=== PATIENT | female | born 1965 ===

== ENCOUNTER 2020-06-18 00:46 | Outpatient (CLI) | payer OTHER, BC, SELFPAY ==
[2020-06-18 18:31] LABS: SARS-CoV-2 RNA PCR Negative
== END 2020-06-18 00:47 | disposition home or self-care (01) ==
LOC: ANHCOVIDDT 00:46
PROVIDERS: Visit Provider Surgery Plastic and Reconstructive Surgery
DX: Z01.812 Encounter for preprocedural laboratory examination (principal); Z20.828 Contact with and (suspected) exposure to other viral communicable diseases
CPT/HCPCS: 87635; C9803; U0003

== ENCOUNTER 2020-06-21 00:01 | Day surgery (SDC) | payer OTHER, BC, SELFPAY ==
[2020-06-07 13:05] VITALS: BMI 39.3
[2020-06-21] VITALS (13 sets, daily range): BP systolic 100–118; BP diastolic 48–72; PULSE 76–108; RESP 12–16; TEMP 36.1–36.2; O2SAT 94–100
--- NOTE | 2020-06-21 06:44 | WPDHPUPDATE1 ---
History and Physical Update Update Date/Time: 06/21/20 06:44 History and Physical has been reviewed, including an updated exam of the patient. There are NO changes in the patient's condition. Risks, benefits, and alternatives have been discussed and questions answered. Patient agrees to proceed with procedure.
[2020-06-21 06:54] LABS: Urine Cotinine NEGATIVE
[2020-06-21] MEDS: LACTATED RINGERS 1,000 ML 30 ML IV CONT ×2 (07:25→11:40)
--- NOTE | 2020-06-21 07:26 | WPDANESEPPF ---
Anes - Initial Pre Proc Eval Procedure: Operation Date: 06/21/20 08:30 Proposed Procedures p Bilateral Reduction Mammoplasty - Yefri Fitzgerald MD Date/Time: 06/21/20 07:26 Surgeon: Yefri Fitzgerald MD Pre Op Diagnosis: Macromastia Patient Data Age: 54 Gender: F Height: 5 ft 8 in Weight: 119.5 kg Allergies Allergy/AdvReac Type Severity Reaction Status Date / Time No Known Allergies Allergy Verified 06/21/20 07:14 Home Medications Medication Instructions Recorded Confirmed Type duloxetine 60 mg capsule,delayed 60 mg PO DAILY 02/10/20 06/21/20 History release metolazone 2.5 mg tablet 2.5 mg PO DAILY 02/10/20 06/21/20 History progesterone micronized 200 mg 200 mg PO DAILY 02/10/20 06/21/20 History capsule spironolactone 25 1 tablet PO DAILY 02/10/20 06/21/20 History mg-hydrochlorothiazide 25 mg tablet hydrocodone 5 mg-acetaminophen 325 1 tablet PO Q6H PRN #15 tablet 06/06/20 06/21/20 Rx mg tablet ondansetron HCl 4 mg tablet 4 mg PO Q6H PRN #30 tablet 06/06/20 06/21/20 Rx bupropion HCl 150 mg PO QAM 06/07/20 06/21/20 History estradiol [Estradiol Transdermal 1 patch TRANSDERMAL WEEKLY 06/07/20 06/21/20 History Patch] Laboratory Tests 06/21/20 06:40 Cotinine Negative Patient hx anesthesia problems: none Family hx anesthesia problems: none PMFSH Past Medical History Medical History Anxiety Depression Hypertension Surgical History Surgical History History of 3 sections 87, 95, 97 History of foot surgery 09, 10, 11, 17 History of lumpectomy 97 History of tonsillectomy 90 Family History Family History Mother Breast cancer Melanoma Grandparent Melanoma Social History Social History Smoking packs per day: 1 Smoking cigarettes per day: 20.0 Years smoked: 24 Smoking pack-years: 24.00 Smoking status: Current every day smoker Tobacco type: e-cigarettes/vaping Smoking end date: 06/07/06 Alcohol intake: current Substance use: never Living arrangements: with family Spiritual care concerns: No Anes - Eval Final PreProcedure Day of Procedure 06/21/20 07:26 Patient weight: morbidly obese Heart: regular rate and rhythm Lungs: clear to auscultation Airway: Mallampati scale (has upper right tooth that has been repaired ) class III Neurological: alert and oriented Last oral intake: >/= 8 hours ASA classification: IV Emergent: no Anesthetic plan: proceed Anesthesia type and monitoring: general ETT (ETT or LMA) and standard monitoring Informed Consent: The patient's anesthetic plan and its attendant risks and benefits were discussed with the patient/family/POA. Questions were solicited and answers provided to the satisfaction of the patient/family/POA.
[2020-06-21] MEDS: ceFAZolin 3 GM/D5W 100 ML 100 ML IVPB (08:30)
--- NOTE | 2020-06-21 11:57 | PM.PROC ---
Procedure Note - Detailed Date of procedure: 06/21/20 Pre-op diagnosis: Macromastia Post-op diagnosis: same Procedure performed: Bilateral reduction mammaplasty Description of procedure: She is here today for bilateral breast reduction. Previously and again today the risks, benefits, alternatives were discussed in extensive detail. I wanted her to be very realistic about the risks involved as well as expectations. We discussed aftercare and what to monitor for. She understands we can never guarantee final breast size and there will always be asymmetry. I was very upfront and honest about the risks of sensation change and even nipple loss (). Made sure answered all of her questions to her satisfaction today and consent was obtained. She was marked in the preoperative holding area with their verification. The patient was taken to the operating room placed supine on the operating table. Anesthesia was provided by anesthesiology. She was prepped and draped in a standard sterile fashion. A surgical time-out was taken. Stab incisions were made and I tumessed with a tumescent solution. I marked out the nipple-areolar complex at 42 mm. I then de-epithelialized the pedicle. The pedicle was well left well more than 2 cm in thickness. I then removed the inferior portion of the breast as well as the central keel to get shape based on preoperative planning. At this point copiously irrigated with saline solution and verified a strict hemostasis. I reapproximated the pillars using a 2-0 PDS as well as along the IMF. I tailor tacked the breast into place with alicia. She was placed in a sitting position. I verified the nipple-areolar complex position based on preoperative markings, intraoperative measurements, and observation which were in full agreement. This nipple-areolar complex was marked at 42 mm in size. I then placed supine and de-epithelialized this. Nipple-areolar complex was inset with 3-0 Monocryl. I closed the vertical incision with 3-0 Monocryl in the IMF with 3-0 stratafix. Then everything was closed using a running subcuticular 4-0 Monocryl followed by Steri-Strips. A dressing was placed followed by surgical bra. Patient was awoke and taken to PACU without difficulty. All instrument sponge counts were correct at the end of the case. Anesthesia: GLMA Surgeon: Yefri Fitzgerald MD Estimated blood loss (mL): 50 Drains: No Packing: No Pathology: yes (Bilateral breast tissue) Complications: No immediate complications Condition: stable Disposition: PACU Findings: Inverted T Superior medial pedicle Tissue removed: Right 1647 grams Left 1515.3 grams
[2020-06-21] MEDS: ONDANSETRON INJ 4 MG/2 ML VIAL IV PUSH (12:12)
[2020-06-21] MEDS: fentaNYL CITRATE INJ (*CRX) 100 MCG/2 ML VIAL 25 MCG IV PUSH ×4 (12:28→12:38)
[2020-06-21] MEDS: SCOPOLAMINE 1.5 MG PATCH TRANSDERM (13:30)
[2020-06-21] MEDS: diphenhydrAMINE HCl INJ 50 MG/ML VIAL 6.25 MG IV PUSH (13:31)
== END 2020-06-21 15:05 | disposition home or self-care (01) ==
PROVIDERS: Visit Provider Surgery Plastic and Reconstructive Surgery
PROC: 0HBV0ZZ Excision of Bilateral Breast, Open Approach (ICD-10-PCS; CPT 19318; principal; 2020-06-21 08:30)
DX: N62 Hypertrophy of breast (principal); N60.32 Fibrosclerosis of left breast; N60.31 Fibrosclerosis of right breast; N60.42 Mammary duct ectasia of left breast; N60.41 Mammary duct ectasia of right breast; I10 Essential (primary) hypertension; F41.8 Other specified anxiety disorders; Z79.899 Other long term (current) drug therapy; F17.290 Nicotine dependence, other tobacco product, uncomplicated; E66.01 Morbid (severe) obesity due to excess calories; Z68.41 Body mass index [BMI] 40.0-44.9, adult
CPT/HCPCS: 19318; 80307; 88305; A9270; J0171; J0330; J0690; J1100; J1170; J1200; J1940; J2250; J2370; J2405; J2704; J3010; J7120